=== PATIENT | female | born 1955 | race Caucasian/White ===

== ENCOUNTER → 2017-01-12 | Outpatient (CLI) | payer BC ==
[~2017-01-12] MED LIST: ASPIRIN (CHILDR81 MG PO; CALCIUM 600 +1 EAC4 PO; COLACE100 MG PO; FLONASE 50 MCG/16 GM NOSE; LEVOTHROID (S100 MCG PO; LEXAPRO20 MG PO; MIRALAX17 GM PO; NORCO 5-325 TA1 EACH PO; NORVASC5 MG PO; OMEPRAZOLE40 MG PO; PERCOCET 5-3251 EACH PO; PRESERVISION L1 EACH PO; VALIUM5 MG PO; VITAMIN D1000 UNIT PO; WELLBUTRIN XL150 M1 PO; XARELTO10 MG PO; ZOCOR20 MG PO; ZOCOR40 MG PO
== END | disposition disaster alternative care site (69) ==
LOC: GAMB 21:35
DX: S89.91XA Unspecified injury of right lower leg, initial encounter (principal); I10 Essential (primary) hypertension; Z79.899 Other long term (current) drug therapy; Z88.8 Allergy status to other drugs, medicaments and biological substances; W01.0XXA Fall on same level from slipping, tripping and stumbling without subsequent striking against object, initial encounter
CPT/HCPCS: A0425; A0427; J2405; J3010

== ENCOUNTER 2017-01-13 14:20 | Inpatient (IN) | payer BC ==
[~2017-01-13] VITALS: Ht 157.5 cm; Wt 89.8 kg
--- NOTE | ~2017-01-13 | CON ---
PATIENT'S NAME: ELI KENDRICK [facility] AGE: 61 Y [address] ROOM: [address] [address] LOCATION: G3N ADMIT DATE: 01/13/2017 Consultation DISCHARGE DATE: FAMILY PHYSICIAN: Monica Escobar MD ATTENDING PHYSICIAN: RADHA DANIELS DATE OF CONSULTATION: 01/13/2017 REFERRING PHYSICIAN: Radha Daniels MD REASON FOR CONSULTATION: Preoperative clearance and medical management. CHIEF COMPLAINT: Right tibial plateau fracture with right knee pain. HISTORY OF PRESENT ILLNESS: This is a 61-year-old female, who is normally independent and active and has been in her healthy state over the past few weeks, who was at home, putting up an antique mirror above her bed, when she lost control of it and it fell on top of her causing her to fall off the bed and landed on her right knee and her right wrist bracing her fall. The mirror did fall on top of her, however, she did not lose consciousness. She did not hit her head. She was unable to bear weight through her right lower extremity and did have to scoot on the floor to her phone, where she called the EMS team. They took her to the emergency room where she had pain medicine and antinausea medicine with some relief. A film reviewed by the staff last night did not show any acute fracture. She was sent home with pain medicines and requested to follow up with an orthopedist. She does state difficulty getting back into her home with the help of her neighbors, but was able to do so. Upon further review this morning with Radiology, there was a fracture noted at the lateral aspect of the tibial plateau. This was phoned to the emergency room physician who then called Lisa. She immediately called Dr. Daniels, her orthopedist's office and was able to get in at noon today where he reviewed the films and confirmed the findings. At the same time, she also complained of some wrist and ankle pain and films were done at the office, but does not available to me for review at this point in time. She does have her right wrist in a brace as well as her right knee in an immobilizer. She has good pain control and was sitting in bed. The patient is expected to undergo a revision of her right knee. We are asked to preoperatively evaluate the patient from a medical perspective. She denies any lightheadedness or dizziness. She denies any headaches. She denies any changes in her vision. She does wear corrective glasses. She has PATIENT'S NAME: ELI KENDRICK [facility] AGE: 61 Y [address] ROOM: [id number] [place], [place] [address] LOCATION: [facility] ADMIT DATE: 01/13/2017 Consultation DISCHARGE DATE: FAMILY PHYSICIAN: Monica Escobar MD ATTENDING PHYSICIAN: RADHA DANIELS all of her own teeth without any problems of dentition or swallowing. She denies any sore throat. She denies any chest pain, palpitations, or history of any heart murmurs. Pulmonary; she denies any shortness of breath, cough, or wheezing. She denies any history of asthma or COPD. She denies any nausea, vomiting, diarrhea, or constipation. She denies any melena in her stool. She does complain of pain when bearing weight through her right lower extremity. She complains of pain at the right ankle on the left lateral aspect as well as on the anterior component of her right knee. She also complains of right wrist pain. She denies any recent illnesses or weight loss and has been in her normal state of health. REVIEW OF SYSTEMS: A 10-point review of systems was completed and was negative other than stated above in the HPI. PAST MEDICAL HISTORY: To include: 1. Hypertension. 2. Depression. 3. Hypothyroidism. 4. GERD with chronic esophagitis. 5. Osteopenia. 6. Hyperlipidemia. PAST SURGICAL HISTORY: 1. Cholecystectomy. 2. Total abdominal hysterectomy with bilateral salpingo-oophorectomy. 3. Heart catheterization which was normal greater than 10 years ago. 4. Right knee medial unicompartment arthroplasty done on 06/08/[address] Daniels. FAMILY MEDICAL HISTORY: Her father had coronary artery disease, and prostate cancer. Her mother had high blood pressure. 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 She denies any history of tobacco or illicit drug use. She states that she drinks one glass of wine approximately every month. She is typically able to ambulate for greater than 30 minutes without any complication. ALLERGIES: MARCIO INHIBITORS, BENZOCAINE, PHENERGAN, AND CERTAIN ADHESIVES, UNSPECIFIED. CURRENT MEDICATIONS: PATIENT'S NAME: ELI KENDRICK [facility] AGE: 61 Y [address] ROOM: [address] [address] LOCATION: [facility] ADMIT DATE: 01/13/2017 Consultation DISCHARGE DATE: FAMILY PHYSICIAN: Monica Escobar MD ATTENDING PHYSICIAN: RAHDA DANIELS 1. Fluticasone 50 mcg per puff 2 sprays each nostril every day as needed for allergy symptoms. 2. Levothyroxine 100 mcg p.o. every morning. 3. Escitalopram 20 mg p.o. every day at noon. 4. Vitamin D3, 1000 units p.o. every day at noon. 5. Amlodipine 5 mg p.o. every day at noon. 6. Omeprazole 40 mg p.o. at bedtime. 7. Bupropion 150 mg p.o. every day at noon. 8. Calcium carbonate with vitamin D3, 600 mg p.o. twice daily. 9. Aspirin 81 mg p.o. daily. 10. Vitamin C, multivitamin 1 capsule p.o. every day. 11. [place] 5/325 mg tablets 1 to 2 tablets p.o. every 6 hours as needed for pain. 12. Simvastatin 20 mg p.o. every night at bedtime. PHYSICAL EXAMINATION: VITAL SIGNS: Most recent vital signs show a temperature of 98.5 orally, pulse is 66, respiratory rate of 16, and blood pressure is 185/81. Her weight is 89.80 kg. Her BMI is documented as 36.2. GENERAL: This is a 61-year-old, female, who looks and appears her stated age who is lying in bed, with no acute distress. HEENT: Head is normocephalic and atraumatic. Her eyes are extraocular movements intact. Her pupils are equal, round, and reactive to light and accommodation, 2+, corrective vision is in place. Ears; deferred. Nose; deferred. Mouth is visualized with good dentition with posterior pharynx without any exudate or redness. Her mucosa is moist. Her gums are pink. NECK: Supple without any lymphadenopathy. CHEST: Rises symmetric. Equal expansion. Clear lung villalpando throughout. There is no wheezing. HEART: Regular rhythm without any gallop or murmur. S1 and S2 present. She has no peripheral edema noted. ABDOMEN: Round, soft, nontender, and nondistended. Bowel sounds are present. She has no organomegaly. GENITOURINARY: Deferred. EXTREMITIES: Starting in the right upper extremity shows a soft brace to her right wrist. She is able to pronate and supinate without any difficulties. She does have point tenderness at the right 4th proximal phalangeal. There is no crepitus noted. Left upper extremity is normal. Right lower extremity is in immobilizer with point tenderness just below the knee. No crepitus noted. Right ankle range of motion is intact, both active and passive. Left lower extremity is normal examination findings. NEUROLOGICAL: Nonfocal. Cranial nerves 2 through 12 are intact. PSYCHOLOGIC: Mood is normal. LABORATORY DATA: PATIENT'S NAME: ELI KENDRICK [facility] AGE: 61 Y [address] ROOM: [place] [address] LOCATION: [facility] ADMIT DATE: 01/13/2017 Consultation DISCHARGE DATE: FAMILY PHYSICIAN: Monica Escobar MD ATTENDING PHYSICIAN: RADHA DANIELS None. RADIOLOGIC IMAGING STUDIES: 1. X-ray of the right knee, three view shows a lateral tibial plateau fracture. 2. She did have a right ankle and right wrist three-view x-ray which is unavailable to me at this point in time. ASSESSMENT AND PLAN: 1. Preoperative clearance. This patient's MET score is greater than 4. Her MEAD perioperative cardiac risk factors are 0.02%. We will continue to hold her aspirin in anticipation of surgery. We will obtain preoperative labs and EKG for further risk stratification. But most likely, the patient is a low risk for a low to average procedure. 2. Right lateral tibial plateau fracture. 3. Right knee pain secondary to right lateral tibial plateau fracture. To continue pain management orders as listed on lower extremity trauma admission order set by Dr. Daniels to include oral Percocet and morphine for breakthrough as well as Tylenol. 4. Right wrist pain. To continue the soft splint brace as needed for comfort and to obtain right wrist films and review. 5. Right ankle pain. No significant exam findings. To continue symptomatic treatment and to obtain films for further review. 6. Essential hypertension. The patient's blood pressure is elevated on admission probably secondary to pain and stress. We will resume her home dose amlodipine which she has not taken today and observe the pressures and titrate accordingly. 7. Hyperlipidemia. To continue her current statin medicine and advise lifestyle exercise education. 8. Depression. Appears to be well controlled on her current home bupropion, to continue such. 9. Hypothyroidism. We will continue her home replacement dosage. 10. Osteopenia. 11. Gastroesophageal reflux disease with a history of chronic esophagitis, to continue PPI therapy. 12. Obesity with a BMI of 36.2. Continue to advise of lifestyle diet and exercise regimen education. 13. Deep venous thrombosis prophylaxis. To be maintained by pneumatic compression devices as anticoagulation is contraindicated with the plan for upcoming surgery. 14. Code status: Full code. The above line of management was discussed with the patient who stated complete understanding with the plan. We will obtain the preoperative laboratory values as well as EKG and with further review for complete risks stratification for upcoming surgery. A final clearance is pending those PATIENT'S NAME: ELI KENDRICK [facility] AGE: 61 Y [address] ROOM: [place] [address] LOCATION: [facility] ADMIT DATE: 01/13/2017 Consultation DISCHARGE DATE: FAMILY PHYSICIAN: Monica Escobar MD ATTENDING PHYSICIAN: RADHA DANIELS results. Thank you for this consultation. KT MORALES APRN, APRN FOR MD GUILLERMO WANG/celeste /[id number] d: t: 01/13/17 2303, CONSULTATION REPORT
--- NOTE | ~2017-01-13 | DS ---
PATIENT'S NAME: HUMAROCK ELI Jolynn [facility] AGE: 61 Y [address] ROOM: [place] [address] LOCATION: [facility] ADMIT DATE: 01/13/2017 Discharge Summary DISCHARGE DATE: 01/15/2017 FAMILY PHYSICIAN: Monica Escobar MD ATTENDING PHYSICIAN: Radha Boston PRIMARY DIAGNOSIS: Right knee Schatzker III lateral tibial plateau fracture. Well-fixed, well-aligned, well-functioning medial compartment unicompartment arthroplasty. SECONDARY DIAGNOSIS: No significant secondary diagnoses. PROCEDURE PERFORMED: Open reduction and internal fixation of Schatzker III right knee lateral tibial plateau fracture. HISTORY: The patient is a 61-year-old female, who fell off her bed while hanging a mirror. She landed on her right foot and sustained a lateral tibial plateau fracture. Please refer to her consultation notes as well as her admission history and physical. HOSPITAL COURSE: The patient underwent the above specified procedure on 01/13/2017 without complications. General endotracheal anesthesia was utilized. She received 24 hours of perioperative prophylactic antibiotics. She remained hemodynamically stable and neurovascularly intact throughout her entire hospital course. Her postoperative deep venous thrombosis prophylaxis consisted of Xarelto 10 mg. DISPOSITION: Home. DISCHARGE DIET: Regular. DISCHARGE ACTIVITY: She is to be strict nonweightbearing of the right lower extremity. The patient is to wear her brace at all times. There is to be no dressing changes. She is to notify Dr. Boston immediately if she experiences increased pain, fevers, chills, erythema, or drainage. DISCHARGE MEDICATIONS: 1. Xarelto 10 mg, take 1 tablet p.o. daily for DVT prophylaxis. 2. Percocet 5/325, take 1-2 tablets p.o. every 4 hours as needed for pain. 3. She is then instructed to continue all of her preadmission medications as instructed by her Internal Medicine physician. FOLLOWUP: Followup date is scheduled for 1 week subsequent to dismissal from the hospital for initial postoperative evaluation. [facility] AGE[facility] 61 Y [address] ROOM: [place] [address] LOCATION: [facility] ADMIT DATE: 01/13/2017 Discharge Summary DISCHARGE DATE: 01/15/2017 FAMILY PHYSICIAN: Monica Escobar MD ATTENDING PHYSICIAN: Radha Boston JW BOONE FOR RADHA BOSTON MD TLB/modl /[id number] d: 01/26/17 0459 t: 01/28/17 1040, DISCHARGE SUMMARY
--- NOTE | ~2017-01-13 | OR ---
PATIENT'S NAME: ELI BERGMAN [facility] AGE: 61 Y [address] ROOM: [place] [address] LOCATION: [facility] ADMIT DATE: 01/13/2017 OR/Procedure Report DISCHARGE DATE: FAMILY PHYSICIAN: Monica Escobar MD ATTENDING PHYSICIAN: RADHA DANIELS SURGEON: Radha Daniels MD DRAFTER [employer]IV[employer]: Hari Hooper, [employer]/[facility] DATE OF PROCEDURE: 01/13/2017 PREOPERATIVE DIAGNOSIS: Right knee Schatzker III lateral tibial plateau fracture. Well-fixed, well-aligned, well-functioning medial compartment unicompartment arthroplasty. POSTOPERATIVE DIAGNOSIS: Right knee Schatzker III lateral tibial plateau fracture. Well-fixed, well-aligned, well-functioning medial compartment unicompartment arthroplasty. PROCEDURE PERFORMED: Open reduction and internal fixation of Schatzker III right knee lateral tibial plateau fracture. ANESTHESIA: General endotracheal anesthesia. ESTIMATED BLOOD LOSS: Less than 10 mL. DRAINS: None. SPECIMENS: None. COMPLICATIONS: None. TOURNIQUET TIME: Less than 2 hours. IMPLANTS: Synthes locking lateral tibial plateau plate, multiple locking screws, and one nonlocking screw. 5 mL of MetaIntell HydroSet graft. INDICATION FOR PROCEDURE: Ms. Bergman is a 61-year-old female who fell off her bed the day before yesterday. She had been standing on her bed, hanging a mirror. She landed on her right foot and sustained a Schatzker III lateral tibial plateau fracture. The fracture consists of a central depression only (no associated split component). Her past orthopedic history is significant for having undergone a medial compartment unicompartment arthroplasty with al over 6 months ago. She had been enthusiastically pleased regarding her right knee replacement until the fall. Radiographs demonstrate that the component is still well-fixed and well-aligned. The fracture does not involve the intercondylar eminence, the medial plateau, or the medial tibial metaphysis. PATIENT'S NAME: ELI BERGMAN [facility] AGE: 61 Y [address] ROOM: [address] [address] LOCATION: [facility] ADMIT DATE: 01/13/2017 OR/Procedure Report DISCHARGE DATE: FAMILY PHYSICIAN: Monica Escobar MD ATTENDING PHYSICIAN: RADHA DANIELS We have specifically reviewed risks and implications of infection, stiffness, malunion, nonunion, neurovascular complications, blood transfusion risks, deep venous thrombosis, pulmonary embolism, infection, as well as potential need for conversion to total knee arthroplasty. Informed consent granted. DESCRIPTION OF PROCEDURE: Ms. Bergman was positioned supine on the fracture table. A well-padded pneumatic tourniquet was placed around her right proximal thigh. Her right thigh was placed into an arthroscopic leg reid, and the foot of the bed was dropped. The left lower extremity was flexed at the hip, and the left foot was placed into a stirrup-type leg reid in order to facilitate lateral fluoroscopic visualization of the right knee. The right lower extremity was prepped and draped with vigilant sterile technique. The right lower extremity was exsanguinated with an Esmarch wrap, and the pneumatic tourniquet was inflated to 300 mmHg. Examination of the right knee under anesthesia demonstrated a 1A Devon and a negative posterior drawer. The right lower extremity was prepped and draped with vigilant sterile technique prior to exsanguination and inflation of the tourniquet. The knee was approached through the preexisting longitudinal midline scar. The anterior compartment musculature was elevated from anterior to posterior to expose the lateral plateau. An 8 mm drill hole was made at the lateral metaphyseal flare through which I utilized an arthroscopic bone tamp (under AP and lateral fluoroscopic guidance) to elevate the depressed lateral tibial plateau articular surface. Anatomic reduction of the lateral plateau was confirmed under AP, lateral, and oblique fluoroscopic imaging. The HydroSet graft was subsequently injected beneath the lateral plateau and allowed to harden prior to placement of the lateral plateau buttress plate with 4 subcortical locking screws proximally and 1 nonlocking screw distally in addition to 3 locking screws distally. AP, lateral, and oblique fluoroscopic images demonstrated anatomic reduction of the fracture and optimal position of all hardware. The incision was thoroughly irrigated with bacteriostatic pulsatile saline lavage multiple times throughout the case. The fascia was reapproximated over the distal two-thirds of the plate with [id number] interrupted #1 Vicryl sutures. Subcutaneous tissues were reapproximated with simple deep interrupted 0 Vicryl sutures. The skin was closed with superficial buried interrupted 2-0 Vicryl PATIENT'S NAME: ELI BERGMAN [facility] AGE: 61 Y [address] ROOM: [address] [address] LOCATION: [facility] ADMIT DATE: 01/13/2017 OR/Procedure Report DISCHARGE DATE: FAMILY PHYSICIAN: Monica Escobar MD ATTENDING PHYSICIAN: RADHA DANIELS sutures, followed by a running subcuticular 3-0 Monocryl suture, followed by Dermabond, followed by Steri-Strips with benzoin. Due to the fact that I utilized a midline approach, placement of the screws required percutaneous insertion through 3 separate stab incisions laterally. Each of these was closed with a single superficial buried interrupted 3-0 Monocryl suture, followed by Dermabond, followed by Steri-Strips with benzoin. The dressings consisted of Mepilex followed by an Nav wrap. A knee immobilizer was placed locked in extension. POSTOPERATIVE REHABILITATION PLAN: Nonweightbearing for 8 weeks. No range of motion until further notice. Xarelto for DVT prophylaxis. MD LC CLARK/cassandral /[id number] d: 01/14/17 1519 t: 01/14/17 1748, OPERATIVE SUMMARY
--- NOTE | 2017-01-13 15:43 | NUR ---
patient admitted after falling yesterday off a bed. Came to ER last night, today came to hospital with increased pain. right knee pain, edema. bruising noted to behind right knee. knee immobilizer intact to right knee. pivot transfer to bed.
--- NOTE | 2017-01-13 16:47 | NUR ---
PATIENT TO HAVE SURGERY IN AM, NEEDS TO BE NPO TONIGHT. IMMOBILIZER TO RIGHT LEG. CSM ADEQUATE. PEDAL EDEMA NOTED, PULSES PALPABLE. PERCOCET AT 1500 ONE TAB. VSS. PIVOT TRANSFER TO COMMODE USING WALKER. BRACE TO RIGHT HAND FOR C/O TENDERNESS TO WRIST FROM FALL LAST NIGHT.
[2017-01-13 18:34] LABS: BASOPHIL # 0.1 K/uL (0.0-0.2); BASOPHIL % 0.7 %; EOSINOPHIL # 0.3 K/uL (0.0-0.5); HEMATOCRIT 37.9 % (33.0-46.0); HEMOGLOBIN 12.8 g/dL (10.0-15.0); IMMATURE GRANULOCYTE % 0.2 %; LYMPHOCYTE # 1.7 K/uL (0.8-4.0); LYMPHOCYTE % 19.6 %; MCH 31.1 pg (27.0-34.0); MCHC 33.8 gm/dL (32.0-36.5); MCV 92.2 fl (83.0-98.0); MONOCYTE # 0.8 K/uL (0.0-1.0); MONOCYTE % 9.7 %; MPV 9.3 fl (9.4-12.4); NEUTROPHIL # (ANC) 5.6 K/uL (1.8-7.8); NEUTROPHIL % 65.8 %; NRBC % 0 /100WBC (0-0.00); PLATELET COUNT 328 K/uL (150-450); RBC 4.11 M/uL (3.50-5.50); RDW-CV 12.7 % (11.9-14.6); WBC 8.5 K/uL (4.0-11.0)
[2017-01-13 18:39] LABS: INR - (THERAPEUTIC) 0.93 (0.92-1.07); PROTIME 9.8 SECONDS (9.8-11.4)
[2017-01-13 18:47] LABS: ANION GAP 10.2 (10.0-19.0); BLOOD UREA NITROGEN 16 mg/dL (6-24); CALCIUM 8.9 mg/dL (8.5-10.5); CHLORIDE 107 mMol/L (96-110); CO2 27 mMol/L (22-32); CREATININE 0.9 mg/dL (0.5-1.1); ESTIMATED GFR (MDRD EQUATION) > 60; POTASSIUM 3.2 mMol/L (3.7-5.1); SODIUM 141 mMol/L (135-145)
[2017-01-13 20:10] LABS: BILIRUBIN URINE NEGATIVE (NEGATIVE); BLOOD URINE NEGATIVE /UL (NEGATIVE); COLOR URINE YELLOW (YELLOW); GLUCOSE URINE NEGATIVE (NEGATIVE); KETONE URINE NEGATIVE (NEGATIVE); LEUKOCYTES URINE 100 /UL (NEGATIVE); NITRITE URINE NEGATIVE (NEGATIVE); PROTEIN URINE NEGATIVE (NEGATIVE); SPEC GRAVITY URINE 1.015 (1.003-1.035); TURBIDITY URINE CLEAR (CLEAR); UROBILINOGEN URINE NORMAL (NORMAL)
[2017-01-13 20:21] LABS: BACTERIA URINE FEW (NEGATIVE); MUCUS URINE 2+ (NEGATIVE); RBC URINE RARE #/HPF (NEGATIVE)
--- NOTE | 2017-01-14 05:30 | NUR ---
Suspect tibial fracture on right lower extremity. Immobilizer on right leg. Pt moves with difficulty. Requires one assist. Vitals stable. NPO from midnight. Scheduled for surgery today.
[2017-01-14 11:42] LABS: PCO2 39 mmHg (35-45)
[2017-01-14 11:44] LABS: BICARBONATE 23.9 mmol/L (18.0-23.0); PO2 40 mmHg (80-90)
[2017-01-14 11:45] LABS: POTASSIUM 4.5 mEq/L (3.7-5.1); SODIUM 141 mEq/L (135-145)
--- NOTE | 2017-01-14 14:20 | NUR ---
Introduced self/role to patient and her daughter from [place]. Patient stated she will be NWB for 2-3 months. Lives alone, plan is home. Only DME she will need is a toilet riser and safety frame. Daughter will try to pick those up today since patient may be discharged over the weekend. Denied any other needs. Will talk about HHC at her follow up appointment with Dr Boston. I did mention finding some nursing or college student to stay with her rent free. She liked that idea. College will be letting out next week. Wrote my name on her marker board. 1520 Followed up with patient. Still declined HHC. Charge Nurse updated on her discharge needs. 1530 Called back to patients room. Daughter was striking out on the toilet riser due to it being [employer] but they may be able to borrow it from a family member. Daughter will be staying until 01/24. A family member also lined up their jewish to assist with some meals.
--- NOTE | 2017-01-14 14:53 | NUR ---
Significant Event: Pt to OR at 0645 and back at 1200. Had a R) Tibial plateau fx repair. Dressings to right lower leg d/i with brace on at all times. Good csm's. Occasionally says things that are confusing but is from anesthesia. Up to commode with 1 assist, no void yet since OR. Up in recliner with PT. Non-wt bearing right leg. Daughter at bedside. VS stable. Was nauseated so did not give routine oral meds at this time. Zofran given at 1245 with some relief. MS 2mg IV x1 now at 1450, rated pain at a 7. Taking in only sips of water at this time. Follow up:
--- NOTE | 2017-01-15 04:38 | NUR ---
Significant Event: A/Ox3. Up frequently to void. Small amounts only. Bladder scan >999, straight cath 1000ml out. 2L O2 Nasal canula. Didnt sleep much due to up and down to bath room. NWB to R) leg. Brace to be worn at all times. Up with 1 Assist and walker. Uses BSC. Pleasant and cooperative with cares. Follow up: Monitor Urine output
[2017-01-15 05:24] LABS: HEMATOCRIT 33.3 % (33.0-46.0)
[2017-01-15] MEDS ORDERED: COLACE100 MG PO (14:32)
[2017-01-15] MEDS ORDERED: XARELTO10 MG PO (14:37)
[2017-01-15] MEDS ORDERED: PERCOCET 5-3251 EACH PO (14:40)
== END 2017-01-15 15:50 | disposition disaster alternative care site (69) | DRG 494 ==
LOC: G3N 14:20
PROVIDERS: Nurse Anesthetist, Certified Registered; Nurse Practitioner Family; ADMIT Orthopaedic Surgery
PROC: 0QSG04Z Reposition Right Tibia with Internal Fixation Device, Open Approach (ICD-10-PCS; principal; 2017-01-14)
DX: S82.141A Displaced bicondylar fracture of right tibia, initial encounter for closed fracture (principal); I10 Essential (primary) hypertension; W18.09XA Striking against other object with subsequent fall, initial encounter; M25.531 Pain in right wrist; E78.5 Hyperlipidemia, unspecified; E03.9 Hypothyroidism, unspecified; M25.571 Pain in right ankle and joints of right foot; E66.9 Obesity, unspecified; Z68.36 Body mass index [BMI] 36.0-36.9, adult; M85.80 Other specified disorders of bone density and structure, unspecified site; F32.9 Major depressive disorder, single episode, unspecified; Z96.651 Presence of right artificial knee joint; Z79.82 Long term (current) use of aspirin; Z71.3 Dietary counseling and surveillance; K21.0 Gastro-esophageal reflux disease with esophagitis
CPT/HCPCS: C1713; J0690; J2250; J2270; J2405; J3010; J3480; J7120; J7121

== ENCOUNTER → 2017-05-19 | Outpatient (CLI) | payer BC | LOC: GBCOE 06:51 | DX: Z12.31 Encounter for screening mammogram for malignant neoplasm of breast (principal) | CPT/HCPCS: G0202 ==